=== PATIENT | male | born 1970 | race Two or more races ===

== ENCOUNTER 2019-01-25 14:20 | Inpatient (IN) | payer OTHER ==
[2019-01-25 18:32] VITALS: BMI 30.2
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
[2019-01-25] MEDS ORDERED: NICOTINE POLACRILEX 2 MG GUM BUC PRN (19:50)
[2019-01-25] MEDS ORDERED: MAGNESIUM CITRATE 300 ML BOTTLE PO PRN (19:50)
[2019-01-25] MEDS ORDERED: MELATONIN 5 MG TABLETS PO PRN (19:50)
[2019-01-25] MEDS ORDERED: ACETAMINOPHEN 325 MG TABLET (FP) PO PRN ×2 (19:50)
[2019-01-25] MEDS ORDERED: BISMUTH SUBSALICYLATE 524 MG/30 ML UD PO PRN (19:50)
[2019-01-25] MEDS ORDERED: MENTHOL/PHENOL 1 EACH UD MM PRN (19:50)
[2019-01-25] MEDS ORDERED: METHADONE HCL 10 MG TABLET (FOR DETOX USE ONLY) PO ONE (19:50)
[2019-01-25] MEDS ORDERED: IBUPROFEN 400 MG TABLET (FP) PO PRN (19:50)
[2019-01-25] MEDS ORDERED: MAG HYDROX/AL HYDROX/SIMETH 30 ML UNIT-DOSE CUP PO PRN (19:50)
[2019-01-25] MEDS ORDERED: MAGNESIUM HYDROX 2400MG/30ML ORAL SUSPENSION 30 ML CUP PO PRN (19:50)
[2019-01-25] MEDS: cloNIDine HCL 0.1 MG TABLET PO PRN (21:46)
[2019-01-25] MEDS: diazePAM 5 MG TABLET PO SCH (21:46)
[2019-01-25] MEDS: THIAMINE HCL 100 MG TABLET (FP) PO SCH (21:47)
[2019-01-26] MEDS: diazePAM 5 MG TABLET PO SCH ×3 (05:47→22:22)
[2019-01-26] MEDS ORDERED: METHADONE HCL 5 MG TABLET (FOR DETOX USE ONLY) ONE (09:42)
[2019-01-26] MEDS ORDERED: METHADONE HCL 10 MG TABLET (FOR DETOX USE ONLY) ONE (09:42)
[2019-01-26] MEDS ORDERED: P-EPHED 60MG/TRIPROLIDI 2.5MG TABLET PO PRN (09:47)
[2019-01-26] MEDS ORDERED: MELATONIN 5 MG TABLETS PO PRN (09:49)
[2019-01-26] MEDS ORDERED: METHADONE (DETOX) 20 MG, METHADONE (DETOX) 5 MG PO ONE (10:00)
[2019-01-26 10:13] LABS: BILIRUBIN,TOTAL 0.4 mg/dL (0.2-1); BLOOD UREA NITROGEN 12.7 mg/dL (7-18); CALCIUM 9.3 mg/dL (8.5-10.1); CREATININE 0.9 mg/dL (0.55-1.3); POTASSIUM 4.5 mmol/L (3.5-5.1); TOT PROT 7.2 g/dl (6.4-8.2)
--- NOTE | 2019-01-26 10:19 | PN ---
[facility] CIWA - CIWA Score Nausea/Vomitin-Mild Nausea/No Vomiting Muscle Tremors: 3 Anxiety: 3 Agitation: 3 Paroxysmal Sweats: 3 Orientation: 0-Oriented Tacttile Disturbances: 0-None Auditory Disturbances: 0-None Visual Disturbances: 0-None Headache: 0-None Present CIWA-Ar Total Score: 13 BHS COWS - Scale Resting Pulse: 0= [place] 80 or Below Sweatin= Chills/Flushing Restless Observation: 1= Difficult to Sit Still Pupil Size: 0= Normal to Room Light Bone or Joint Aches: 2= Severe Diffuse Aches Runny Nose/ Eye Tearin= Runny Nose/Eyes GI Upset > 30mins: 2= Nausea/Diarrhea Tremor Observation of Outstretched Hands: 1= Tremor [place], Not Seen Yawning Observation: 1= 1-2x During Session Anxiety or Irritability: 2=Irritable/Anxious Goose Flesh Skin: 0=Smooth Skin COWS Score: 12 S Progress Note (SOAP) Subjective: sweats shakes interrupted sleep agitation teary eyes running nose goose bumps anxiety Objective: 01/26/19 10:16 Vital Signs Temperature 96.9 F L 01/26/19 09:43 Pulse Rate 57 L 01/26/19 09:43 Respiratory Rate 18 01/26/19 09:43 Blood Pressure 140/95 01/26/19 09:43 O2 Sat by Pulse Oximetry (%) Laboratory Tests 01/26/19 07:00 Sodium 138 Potassium 4.5 Chloride 104 Carbon Dioxide 30 Anion Gap 4 L BUN 12.7 Creatinine 0.9 Est GFR (CKD-EPI)AfAm 117.47 Est GFR (CKD-EPI)NonAf 101.35 Random Glucose 92 Calcium 9.3 Total Bilirubin 0.4 AST 11 L ALT 20 Alkaline Phosphatase 93 Total Protein 7.2 Albumin 3.0 L labs noted aaox3 ambulating no acute distress Assessment: 01/26/19 10:16 withdrawals Plan: continue detox increase fluids actifed compazine prn
[2019-01-26 10:34] LABS: HEMATOCRIT 37.8 % (35.4-49); HEMOGLOBIN 12.3 GM/dL (11.7-16.9); MCH 24.8 pg (25.7-33.7); MCHC 32.5 g/dl (32.0-35.9); MEAN CELL VOLUME 76.4 fl (80-96); PLATELET COUNT 256 K/MM3 (134-434); RBC 4.95 M/mm3 (4.00-5.60); RDW 16.8 % (11.9-15.9); WHITE BLOOD COUNT 4.7 K/mm3 (4.0-10.0)
[2019-01-26] MEDS: METHOCARBAMOL 500 MG TABLET PO PRN ×2 (10:36→22:23)
[2019-01-26] MEDS: PRENATAL VITAMINS W/ FOLIC ACID TABLET (FP) PO SCH (10:36)
[2019-01-26] MEDS: NICOTINE 21 MG/24 HOURS TOPICAL PATCH TD SCH (10:36)
[2019-01-26] MEDS: cloNIDine HCL 0.1 MG TABLET PO PRN (10:36)
[2019-01-26] MEDS: hydrOXYzine PAMOATE 25 MG CAPSULE (FP) PO PRN (10:37)
[2019-01-26] MEDS ORDERED: TRIMETHOBENZAMIDE HCL 200MG/2ML INJ IM ONE ×2 (11:06→19:43)
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
[2019-01-26] MEDS: PROCHLORPERAZINE MALEATE 5 MG TABLET PO PRN (17:19)
[2019-01-26] MEDS ORDERED: LIDOCAINE 5% TOPICAL PATCH TP ONE (19:43)
[2019-01-26] MEDS: THIAMINE HCL 100 MG TABLET (FP) PO SCH (22:22)
[2019-01-26] MEDS: diazePAM 5 MG TABLET PO PRN (23:33)
[2019-01-27] MEDS: hydrOXYzine PAMOATE 25 MG CAPSULE (FP) PO PRN ×2 (01:51→17:54)
[2019-01-27] MEDS: diazePAM 5 MG TABLET PO SCH ×2 (05:48→17:25)
[2019-01-27] MEDS: LIDOCAINE PATCH REMOVAL MC SCH (08:37)
--- NOTE | 2019-01-27 09:07 | PN ---
[facility] Progress Note Note: Patient complains of sleeping poorly despite taking Melatonin 10 mg/hs. Requests to be ordered Trazadone to which she responded favorably in the past. Will order Trazadone 100 mg/hs
[2019-01-27] MEDS ORDERED: METHADONE HCL 10 MG TABLET (FOR DETOX USE ONLY) PO ONE (10:00)
[2019-01-27] MEDS: PRENATAL VITAMINS W/ FOLIC ACID TABLET (FP) PO SCH (10:02)
[2019-01-27] MEDS: NICOTINE 21 MG/24 HOURS TOPICAL PATCH TD SCH (10:03)
--- NOTE | 2019-01-27 11:57 | PN ---
[facility] CIWA - CIWA Score Nausea/Vomitin-No Nausea/No Vomiting Muscle Tremors: 3 Anxiety: 3 Agitation: 3 Paroxysmal Sweats: 3 Orientation: 0-Oriented Tacttile Disturbances: 0-None Auditory Disturbances: 0-None Visual Disturbances: 0-None Headache: 0-None Present CIWA-Ar Total Score: 12 BHS COWS - Scale Resting Pulse: 0= [place] 80 or Below Sweatin= Chills/Flushing Restless Observation: 1= Difficult to Sit Still Pupil Size: 0= Normal to Room Light Bone or Joint Aches: 2= Severe Diffuse Aches Runny Nose/ Eye Tearin= Runny Nose/Eyes GI Upset > 30mins: 2= Nausea/Diarrhea Tremor Observation of Outstretched Hands: 2= Slight Tremor Visible Yawning Observation: 1= 1-2x During Session Anxiety or Irritability: 2=Irritable/Anxious Goose Flesh Skin: 3=Piloerection COWS Score: 16 S Progress Note (SOAP) Subjective: nausea teary eyes nasal congestions interrupted sleep body aches irritable insomnia Objective: 01/27/19 11:55 Vital Signs Temperature 98.8 F 01/27/19 10:54 Pulse Rate 65 01/27/19 10:54 Respiratory Rate 20 01/27/19 10:54 Blood Pressure 138/70 01/27/19 10:54 O2 Sat by Pulse Oximetry (%) Laboratory Tests 01/25/19 01/26/19 01/26/19 18:56 07:00 07:00 WBC 4.7 RBC 4.95 Hgb 12.3 Hct 37.8 MCV 76.4 L MCH 24.8 L MCHC 32.5 RDW 16.8 H Plt Count 256 D MPV 10.0 Sodium 138 Potassium 4.5 Chloride 104 Carbon Dioxide 30 Anion Gap 4 L BUN 12.7 Creatinine 0.9 Est GFR (CKD-EPI)AfAm 117.47 Est GFR (CKD-EPI)NonAf 101.35 Random Glucose 92 Calcium 9.3 Total Bilirubin 0.4 AST 11 L ALT 20 Alkaline Phosphatase 93 Total Protein 7.2 Albumin 3.0 L POC Urine HCG, Qual Negative RPR Titer HIV 1&2 Antibody Screen HIV P24 Antigen 01/26/19 01/26/19 07:00 07:00 WBC RBC Hgb Hct MCV MCH MCHC RDW Plt Count MPV Sodium Potassium Chloride Carbon Dioxide Anion Gap BUN Creatinine Est GFR (CKD-EPI)AfAm Est GFR (CKD-EPI)NonAf Random Glucose Calcium Total Bilirubin AST ALT Alkaline Phosphatase Total Protein Albumin POC Urine HCG, Qual RPR Titer Nonreactive HIV 1&2 Antibody Screen Cancelled HIV P24 Antigen Cancelled labs noted aaox3 ambulating no acute distress Assessment: 01/27/19 11:57 withdrawals Plan: continue detox increase fluids
[2019-01-27] MEDS: METHOCARBAMOL 500 MG TABLET PO PRN (17:26)
[2019-01-27] MEDS: THIAMINE HCL 100 MG TABLET (FP) PO SCH (22:20)
[2019-01-27] MEDS: traZODone HCL 100 MG TABLET (FP) PO SCH (22:21)
[2019-01-27] MEDS: diazePAM 5 MG TABLET PO PRN (22:23)
[2019-01-28] MEDS ORDERED: diazePAM 5 MG TABLET PO ONE (06:00)
[2019-01-28] MEDS ORDERED: METHADONE HCL 5 MG TABLET (FOR DETOX USE ONLY) ONE (09:40)
[2019-01-28] MEDS ORDERED: METHADONE HCL 10 MG TABLET (FOR DETOX USE ONLY) ONE (09:41)
[2019-01-28] MEDS: LIDOCAINE PATCH REMOVAL MC SCH ×2 (09:49→22:14)
[2019-01-28] MEDS ORDERED: METHADONE (DETOX) 10 MG, METHADONE (DETOX) 5 MG PO ONE (10:00)
[2019-01-28] MEDS: LIDOCAINE 5% TOPICAL PATCH TP SCH (10:07)
[2019-01-28] MEDS: PRENATAL VITAMINS W/ FOLIC ACID TABLET (FP) PO SCH (10:07)
[2019-01-28] MEDS: NICOTINE 21 MG/24 HOURS TOPICAL PATCH TD SCH (10:08)
[2019-01-28] MEDS: METHOCARBAMOL 500 MG TABLET PO PRN (10:10)
--- NOTE | 2019-01-28 12:10 | PN ---
[facility] CIWA - CIWA Score Nausea/Vomitin-No Nausea/No Vomiting Muscle Tremors: 3 Anxiety: 1-Mildly Anxious Agitation: 2 Paroxysmal Sweats: 2 Orientation: 0-Oriented Tacttile Disturbances: 0-None Auditory Disturbances: 0-None Visual Disturbances: 0-None Headache: 0-None Present CIWA-Ar Total Score: 8 BHS COWS - Scale Resting Pulse: 0= [place] 80 or Below Sweatin= Chills/Flushing Restless Observation: 1= Difficult to Sit Still Pupil Size: 0= Normal to Room Light Bone or Joint Aches: 1= Mild Discomfort Runny Nose/ Eye Tearin= None GI Upset > 30mins: 0= None Tremor Observation of Outstretched Hands: 1= Tremor [place], Not Seen Yawning Observation: 1= 1-2x During Session Anxiety or Irritability: 1=Feels Anxious/Irritable Goose Flesh Skin: 0=Smooth Skin COWS Score: 6 S Progress Note (SOAP) Subjective: sweats irritable agitation interrupted sleep Objective: 01/28/19 12:08 Vital Signs Temperature 98.2 F 01/28/19 10:05 Pulse Rate 59 L 01/28/19 10:05 Respiratory Rate 18 01/28/19 10:05 Blood Pressure 132/80 01/28/19 10:05 O2 Sat by Pulse Oximetry (%) aaox3 ambulating no acute distress Assessment: 01/28/19 12:10 withdrawals Plan: continue detox increase fluids
[2019-01-28] MEDS: PROCHLORPERAZINE MALEATE 5 MG TABLET PO PRN (12:16)
[2019-01-28] MEDS ORDERED: TRIMETHOBENZAMIDE HCL 200MG/2ML INJ IM PRN (14:27)
[2019-01-28] MEDS ORDERED: ONDANSETRON *ODT* 4 MG TABLET SL PRN (14:39)
[2019-01-28] MEDS ORDERED: ALBUTEROL SO4 8 GM HFA INHALER IH PRN (14:46)
[2019-01-28] MEDS: THIAMINE HCL 100 MG TABLET (FP) PO SCH (22:14)
[2019-01-28] MEDS: traZODone HCL 100 MG TABLET (FP) PO SCH (22:14)
[2019-01-29] MEDS ORDERED: METHADONE HCL 10 MG TABLET (FOR DETOX USE ONLY) PO ONE (10:00)
[2019-01-29] MEDS: NICOTINE 21 MG/24 HOURS TOPICAL PATCH TD SCH (10:35)
[2019-01-29] MEDS: METHOCARBAMOL 500 MG TABLET PO PRN (10:36)
[2019-01-29] MEDS: hydrOXYzine PAMOATE 25 MG CAPSULE (FP) PO PRN (10:36)
[2019-01-29] MEDS: PRENATAL VITAMINS W/ FOLIC ACID TABLET (FP) PO SCH (10:36)
[2019-01-29] MEDS: LIDOCAINE 5% TOPICAL PATCH TP SCH (10:36)
[2019-01-29] MEDS ORDERED: cloNIDine HCL 0.1 MG TABLET PO PRN (12:58)
--- NOTE | 2019-01-29 13:08 | PN ---
[facility] CIWA - CIWA Score Nausea/Vomitin-Mild Nausea/No Vomiting Muscle Tremors: 3 Anxiety: 4-Mod. Anxious/Guarded Agitation: 4-Moderately Restless Paroxysmal Sweats: 1-Minimal Palms Moist Orientation: 0-Oriented Tacttile Disturbances: 0-None Auditory Disturbances: 0-None Visual Disturbances: 0-None Headache: 0-None Present CIWA-Ar Total Score: 13 BHS COWS - Scale Resting Pulse: 1= [place] 81-100 Sweatin= Chills/Flushing Restless Observation: 3= Extraneous Movement Pupil Size: 0= Normal to Room Light Bone or Joint Aches: 2= Severe Diffuse Aches Runny Nose/ Eye Tearin= Runny Nose/Eyes GI Upset > 30mins: 1= Stomach Cramp Tremor Observation of Outstretched Hands: 2= Slight Tremor Visible Yawning Observation: 0= None Anxiety or Irritability: 1=Feels Anxious/Irritable Goose Flesh Skin: 0=Smooth Skin COWS Score: 13 [facility] Progress Note (SOAP) Subjective: pt states she feels like she is still with withdrawal Sx- pt on methadone taper and also with benzo taper protocol, prn clonidine/vistaril O: Vital Signs - 24 hr 01/28/19 01/28/19 01/28/19 14:02 17:05 20:48 Temperature 98.0 F 96.8 F L 98.2 F Pulse Rate 66 60 67 Respiratory 18 18 18 Rate Blood Pressure 114/68 133/51 L 122/82 01/29/19 01/29/19 01/29/19 00:30 03:30 06:00 Temperature 97.9 F Pulse Rate 62 Respiratory 16 18 16 Rate Blood Pressure 145/84 01/29/19 09:55 Temperature 97.3 F L Pulse Rate 79 Respiratory 18 Rate Blood Pressure 151/88 Laboratory Tests 01/25/19 01/26/19 01/26/19 18:56 07:00 07:00 WBC 4.7 RBC 4.95 Hgb 12.3 Hct 37.8 MCV 76.4 L MCH 24.8 L MCHC 32.5 RDW 16.8 H Plt Count 256 D MPV 10.0 Sodium 138 Potassium 4.5 Chloride 104 Carbon Dioxide 30 Anion Gap 4 L BUN 12.7 Creatinine 0.9 Est GFR (CKD-EPI)AfAm 117.47 Est GFR (CKD-EPI)NonAf 101.35 Random Glucose 92 Calcium 9.3 Total Bilirubin 0.4 AST 11 L ALT 20 Alkaline Phosphatase 93 Total Protein 7.2 Albumin 3.0 L POC Urine HCG, Qual Negative RPR Titer HIV 1&2 Ag/Ab, 4th Gen HIV 1&2 Antibody Screen HIV P24 Antigen 01/26/19 01/26/19 01/26/19 07:00 07:00 16:00 WBC RBC Hgb Hct MCV MCH MCHC RDW Plt Count MPV Sodium Potassium Chloride Carbon Dioxide Anion Gap BUN Creatinine Est GFR (CKD-EPI)AfAm Est GFR (CKD-EPI)NonAf Random Glucose Calcium Total Bilirubin AST ALT Alkaline Phosphatase Total Protein Albumin POC Urine HCG, Qual RPR Titer Nonreactive HIV 1&2 Ag/Ab, 4th Gen Non reactive HIV 1&2 Antibody Screen Cancelled HIV P24 Antigen Cancelled a/p: continue xanax and methadone detox protocols prn meds for detox
[2019-01-29] MEDS: hydrOXYzine PAMOATE 50 MG CAPSULE (FP) PO PRN ×2 (17:36→22:44)
[2019-01-29] MEDS: THIAMINE HCL 100 MG TABLET (FP) PO SCH (22:42)
[2019-01-29] MEDS: traZODone HCL 100 MG TABLET (FP) PO SCH (22:42)
[2019-01-29] MEDS: LIDOCAINE PATCH REMOVAL MC SCH (22:43)
[2019-01-30] MEDS: hydrOXYzine PAMOATE 50 MG CAPSULE (FP) PO PRN (05:41)
[2019-01-30] MEDS ORDERED: METHADONE HCL 5 MG TABLET (FOR DETOX USE ONLY) PO ONE (06:00)
[2019-01-30 06:47] VITALS: BP 128/64; PULSE 52; TEMP 97.9
[2019-01-30] MEDS: PRENATAL VITAMINS W/ FOLIC ACID TABLET (FP) PO SCH (11:15)
[2019-01-30] MEDS: NICOTINE 21 MG/24 HOURS TOPICAL PATCH TD SCH (11:15)
[2019-01-30] MEDS: LIDOCAINE 5% TOPICAL PATCH TP SCH (11:15)
== END 2019-01-30 09:27 | disposition home or self-care (01) | DRG 773 ==
LOC: EDSEX → YASAS 14:20 → Y6N 20:12
PROVIDERS: ADMIT Allergy & Immunology; ATTEND Allergy & Immunology
PROC: HZ2ZZZZ Detoxification Services for Substance Abuse Treatment (ICD-10-PCS; principal; 2019-01-25)
DX: F11.23 Opioid dependence with withdrawal (principal); F13.230 Sedative, hypnotic or anxiolytic dependence with withdrawal, uncomplicated; F14.20 Cocaine dependence, uncomplicated; F17.210 Nicotine dependence, cigarettes, uncomplicated; F25.9 Schizoaffective disorder, unspecified; F31.81 Bipolar II disorder; F19.282 Other psychoactive substance dependence with psychoactive substance-induced sleep disorder; F19.24 Other psychoactive substance dependence with psychoactive substance-induced mood disorder; J45.909 Unspecified asthma, uncomplicated; G40.509 Epileptic seizures related to external causes, not intractable, without status epilepticus; Z88.0 Allergy status to penicillin; Z59.0 Homelessness
CPT/HCPCS: 36415; 80053; 81025; 85027; 86593; 87389; J0735